=== PATIENT | male | born 1985 | race Caucasian/White ===

== ENCOUNTER 2016-05-17 22:10 | Emergency (ER) | payer MEDICARE, OTHER ==
[2016-05-17 22:43] LABS: HEMOGLOBIN 14.7 gm/dl (14.0-17.5); RED BLOOD COUNT 5.08 M/UL (4.20-5.50); WHITE BLOOD COUNT 13.3 K/UL (4.5-11.0)
[2016-05-17 23:06] LABS: BUN/CREATININE RATIO 16 (0-10)
[2016-09-18] MEDS ORDERED: LIPITOR TAB 1010 MG PO (07:23)
[2016-09-18] MEDS ORDERED: WELLBUTRIN XL150 M1 PO (07:24)
[2016-09-18] MEDS ORDERED: KLONOPIN TAB 00.5 MG PO (07:25)
[2016-09-18] MEDS ORDERED: FLONASE 0.05% N16 GM (07:26)
[2016-09-18] MEDS ORDERED: VISTARIL 25 MG25 MG PO (07:26)
[2016-09-18] MEDS ORDERED: MONTELUKAST SOD10 MG PO (07:27)
[2016-09-18] MEDS ORDERED: MUCINEX600 MG PO (07:27)
[2016-09-18] MEDS ORDERED: SERTRALINE HCL100 MG PO (07:29)
[2016-09-18] MEDS ORDERED: INVEGA6 MG PO (07:29)
[2016-09-18] MEDS ORDERED: PROPRANOLOL HCL10 MG PO (07:30)
[2016-09-18] MEDS ORDERED: COLACE 100MG C100 MG PO (11:40)
[2016-09-18] MEDS ORDERED: NORCO 7.5-3251 EACH PO (11:40)
== END 2016-05-18 05:10 | disposition home or self-care (01) ==
LOC: ER1 22:10
PROVIDERS: Family Medicine
DX: T68.XXXA Hypothermia, initial encounter (principal); X31.XXXA Exposure to excessive natural cold, initial encounter; F84.0 Autistic disorder; Z88.1 Allergy status to other antibiotic agents; Z79.899 Other long term (current) drug therapy
CPT/HCPCS: 51702; 80053; 80307; 81001; 82550; 83874; 85025; 93005; 96360; 96361; 99285; G0480

== ENCOUNTER → 2016-08-02 | Outpatient (CLI) | payer MEDICARE, OTHER ==
[~2016-08-02] MED LIST: COLACE 100MG C100 MG PO; FLONASE 0.05% N16 GM; INVEGA6 MG PO; KLONOPIN TAB 00.5 MG PO; LIPITOR TAB 1010 MG PO; MONTELUKAST SOD10 MG PO; MUCINEX600 MG PO; NORCO 7.5-3251 EACH PO; PROPRANOLOL HCL10 MG PO; SERTRALINE HCL100 MG PO; VISTARIL 25 MG25 MG PO; WELLBUTRIN XL150 M1 PO
== END ==
LOC: US 07-25 07:45
DX: R07.9 Chest pain, unspecified (principal); K21.9 Gastro-esophageal reflux disease without esophagitis; R93.2 Abnormal findings on diagnostic imaging of liver and biliary tract; R16.0 Hepatomegaly, not elsewhere classified
CPT/HCPCS: 76705